=== PATIENT | male | born 1985 | race Caucasian/White ===

== ENCOUNTER 2024-09-27 06:24 | Day surgery (SDC) | payer BC, SELFPAY | END 2024-09-27 11:50 | disposition home or self-care (01) | LOC: GI 06:24 | PROVIDERS: ATTENDING PHYSICIAN Surgery | DX: Z12.11 Encounter for screening for malignant neoplasm of colon (principal); Z80.0 Family history of malignant neoplasm of digestive organs | CPT/HCPCS: G0105 ==